=== PATIENT | female | born 1930 | race Hispanic/Latino ===

== ENCOUNTER 2016-05-06 16:45 | Emergency (ER) | payer MEDICARE, OTHER ==
[2016-05-06 16:45] VITALS: BMI 29.9
--- NOTE | 2016-05-06 18:38 | CT ---
EXAM: CT Head Without Intravenous Contrast. CLINICAL HISTORY: 86 years old, female; Injury or trauma; Fall; Initial encounter; Concussion / head injury; Additional info: S/P fall TECHNIQUE: Axial computed tomography images of the head/brain without intravenous contrast. This CT exam was performed using one or more of the following dose reduction techniques: automated exposure control, adjustment of the mA and/or kV according to patient size, and/or use of iterative reconstruction technique. EXAM DATE/TIME: 05/06/2016 5:04 PM COMPARISON: There are no prior studies for comparison. FINDINGS: Brain: There is dilatation of sulci gyri and ventricles. There is no midline shift. There is decreased attenuation in periventricular white matter. There are small age-indeterminate lacunar infarcts in the basal ganglia. There are no focal masses. There are no focal hemorrhages. Denny-white differentiation is visualized. Ventricles: See above Bones: Cranial vault is intact. Soft tissues: unremarkable Sinuses: There is no acute sinusitis. Ears and mastoids: Middle ears and mastoids are unremarkable. Orbits: Orbital contents are unremarkable. IMPRESSION: Atrophy and small vessel disease, no bleed
--- NOTE | 2016-05-06 18:40 | ED PDOC ---
HPI: Trauma/Fall - HPI Time Seen by Provider: 05/06/16 16:51 Chief Complaint (Nursing): Upper Extremity Problem/Injury Chief Complaint (Provider): Evaluation s/p Fall History Per: Patient History/Exam Limitations: no limitations Injury Occurred (Timing): Just Before Arrival Location Of Injury: Left: Wrist Severity: Moderate Additional Complaint(s): Samantha Pugh is an 86 year old female, with a past medical history inclusive of HTN, hyperlipidemia, type II diabetes (diet controlled) and Parkinson's Disease, who presents to the ED on 05/06/16 for the evaluation of moderate left wrist pain after having tripped and fallen within a store. Patient reports having landed on her left side and is also concerned about her left hip as she recently underwent a hip replacement on that side. She is unsure regarding possible head trauma but denies loss of consciousness or numbness/tingling within her left hand. Further denies chest pain, shortness of breath or acute dizziness/headache prior to falling. PMD: Vincent Perez Past Medical History Reviewed: Historical Data, Nursing Documentation, Vital Signs Vital Signs: Last Vital Signs Temp 98.0 F 05/06/16 16:47 Pulse 67 05/06/16 16:47 Resp 20 05/06/16 16:47 BP 142/61 05/06/16 16:47 Pulse Ox 99 05/06/16 16:47 - Medical History PMH: Anxiety, Arthritis, Diabetes (diet controlled), HTN, Hyperlipidemia, Pancreatitis, Parkinson's Disease, Chronic Kidney Disease Denies: HIV - Surgical History Surgical History: Cholecystectomy - Family History Family History: States: Unknown Family Hx - Home Medications Home Medications: Ambulatory Orders Medication Instructions Recorded Aspirin [Aspirin EC] 81 mg PO DAILY 02/10/15 Enalapril Maleate 5 mg PO DAILY 02/10/15 Escitalopram [Lexapro] 10 mg PO DAILY 02/10/15 Metoprolol Succinate [Toprol XL] 50 mg PO DAILY 02/10/15 Multivit, Iron, Min #5, FA 1 tab PO DAILY 02/10/15 [Strovite Forte Caplet] Atorvastatin [Lipitor] 20 mg PO DAILY #0 tab 02/23/15 Naphazoline/Pheniramine Opht 1 drop OU QID PRN #0 bottle 02/23/15 [Naphcon-A Opht] Docusate [Colace] 200 mg PO HS #0 cap 03/10/15 Ferrous Sulfate [Feosol] 325 mg PO TID #0 tab 03/10/15 Hydrocerin [Hydrocerin Cream] 1 applic TOP BID #0 jar 03/10/15 Lactobacillus Acidophilus [Bacid 1 cap PO BID #0 cap 03/10/15 Acidophilus] Polyethylene Glycol/Polyvinyl 1 drop OU QID #0 bottle 03/10/15 [Artificial Tears] Primidone [Mysoline] 75 mg PO HS #0 tab 03/10/15 Sulfamethoxazole/Trimethoprim 1 tab PO Q12 #0 tab 03/10/15 [Bactrim DS Tab] traMADol [Ultram] 50 mg PO Q6 PRN #0 tab 03/10/15 Ibuprofen [Motrin Tab] 600 mg PO Q6 #30 tab 05/06/16 - Allergies Allergies/Adverse Reactions: Allergies Allergy/AdvReac Type Severity Reaction Status Date / Time Penicillins Allergy RASH Verified 03/02/15 06:18 Review of Systems ROS Statement: Except As Marked, All Systems Reviewed And Found Negative Cardiovascular: Negative for: Chest Pain Respiratory: Negative for: Shortness of Breath Musculoskeletal: Positive for: Arm Pain (left wrist) Neurological: Negative for: Numbness (no tingling), Headache, Dizziness Physical Exam - Reviewed Nursing Documentation Reviewed: Yes Vital Signs Reviewed: Yes - Physical Exam Appears: Positive for: Non-toxic, No Acute Distress Head Exam: Positive for: ATRAUMATIC, NORMAL INSPECTION, NORMOCEPHALIC Skin: Positive for: Normal Color, Warm, Dry Eye Exam: Positive for: Normal appearance, PERRL Neck: Positive for: Normal, Painless ROM, Supple Cardiovascular/Chest: Positive for: Regular Rate, Rhythm, Chest Non Tender. Negative for: Murmur Respiratory: Positive for: Normal Breath Sounds. Negative for: Respiratory Distress Pulses-Radial (L): 2+ Gastrointestinal/Abdominal: Positive for: Normal Exam, Soft. Negative for: Tenderness Back: Positive for: Normal Inspection. Negative for: Vertebral Tenderness Extremity: Positive for: Tenderness (left wrist; b/l left shoulder, left elbow and b/l hips nontender), Capillary Refill (<2 seconds), Swelling (left wrist). Negative for: Normal ROM (decreased ROM of left wrist secondary to pain; FROM of left shoulder, left elbow and all fingers on left hand), Deformity Neurologic/Psych: Positive for: Alert, Oriented. Negative for: Motor/Sensory Deficits (neurovascularly intact left hand) - ECG O2 Sat by Pulse Oximetry: 99 (RA) Pulse Ox Interpretation: Normal Medical Decision Making Medical Decision Makin:51 Initial Impression: wrist fracture; will r/o intracranial bleed as well as hip/ pelvis injury Initial Plan: * CT Head w/o contrast * XR Left Forearm * XR Left Wrist * XR Left Hip * XR Left Knee * Tylenol 650mg PO * Reevaluation 17:25 XR Left wrist as reviewed by me shows nondisplaced wrist fracture. Placed in volar splint, see procedure note for additional details. XR Left Hip shows questionable fracture, will order CT Pelvis for further evaluation. 18:37 CT Head report reviewed: atrophy and small vessel disease, no bleed. See full report for additional details. 18:46 CT Pelvis report reviewed: osteopenia and degenerative change, no acute fracture identified. Left prosthesis and fecal impaction. See full report for additional details. 1930 Pt. ambulating around E.D. with cane. Knee xray negative for acute pathology. Told to f/u w/ Dr. Lal. Scribe Attestation: Documented by Catie Mendoza, acting as a scribe for Terrence Cary MD. Provider Scribe Attestation: All medical record entries made by the Scribe were at my direction and personally dictated by me. I have reviewed the chart and agree that the record accurately reflects my personal performance of the history, physical exam, medical decision making, and the department course for this patient. I have also personally directed, reviewed, and agree with the discharge instructions and disposition. Procedures - Time-Out Type of Procedure: Wrist Splint Site of Procedure: Left Wrist Correct Patient (with visual ID + MR# on ID Band): Yes Correct Procedure: Yes Correct Site Marked: Yes - Splinting Location: Left Wrist Hand-Made Type: orthoglass Splint: volar Pre-Proc Neuro Vasc Exam: normal Post-Proc Neuro Vasc Exam: normal Progress: Good placement, neurovascular status remains intact, patient tolerated procedure well with no immediate complications. Disposition - Clinical Impression Clinical Impression: Fracture of wrist - Disposition Referrals: Saeed Lal III, MD [Staff Provider] - Disposition: Routine/Home Disposition Time: 19:30 Condition: IMPROVED Prescriptions: Ibuprofen [Motrin Tab] 600 mg PO Q6 #30 tab Instructions: Wrist Fracture in Adults (ED)
--- NOTE | 2016-05-06 18:46 | CT ---
EXAM: CT Pelvis Without Intravenous Contrast. CLINICAL HISTORY: 86 years old, female; Injury or trauma; Fall; Initial encounter; Blunt trauma (contusions or hematomas); Bilateral; Pelvic region; Prior surgery; Additional info: S/P fall, R/O hip fracture TECHNIQUE: Axial computed tomography images of the pelvis without intravenous contrast. This CT exam was performed using one or more of the following dose reduction techniques: automated exposure control, adjustment of the mA and/or kV according to patient size, and/or use of iterative reconstruction technique. Coronal and sagittal reformatted images were created and reviewed. EXAM DATE/TIME: 05/06/2016 5:25 PM COMPARISON: CT - ABD PELVIS PO IV CONTRAST 02/15/2015 2:54:08 PM FINDINGS: Bowel: Small bowel is mildly distended with fluid and air. There are scattered air-fluid levels. Appendix and terminal ileum are unremarkable. There is a fecal bolus in the rectum. Appendix: See stomach and bowel Intraperitoneal space: There is no significant fluid.There is no free air. Bladder: unremarkable Reproductive: Uterus and adnexal structures are unremarkable. Bones/joints: Bony structures are diffusely osteopenic. There are degenerative changes in the lower lumbar spine. There is L4-5 and L5-S1 disc disease. There is mild disc bulging. Sacroiliac joints are patent. No sacral fractures are visualized. There are no pelvic fractures. There are degenerative changes at the right hip. There is no right hip fracture. There is a left hip prosthesis. Allowing for streak, there is no instrument failure. The left femoral shaft fracture is identified. Soft tissues: There is minimal bruising in the soft tissues of the right hip Vasculature: There are vascular calcifications. There are vascular calcifications. Lymph nodes: unremarkable IMPRESSION: Osteopenia and degenerative change, no acute fracture identified; left prosthesis; fecal impaction
[2016-05-06 20:12] VITALS: BP 122/78; PULSE 86; RESP 18; TEMP 98.3
[2016-05-06 20:25] VITALS: O2SAT 99
--- NOTE | 2016-05-07 06:37 | RAD ---
HISTORY: r/o fx COMPARISON: No prior FINDINGS: BONES: Osteopenia. 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 JOINTS: As above. SOFT TISSUE: Normal. OTHER FINDINGS: None . IMPRESSION: Osteopenia. 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
--- NOTE | 2016-05-07 06:41 | RAD ---
HISTORY: s/p fall COMPARISON: No prior FINDINGS: BONES: Osteopenia. Impaction fracture of the distal radius. JOINTS: Normal. No osteoarthritis. SOFT TISSUE: Normal. OTHER FINDINGS: None . IMPRESSION: Impaction fracture of the distal radius.
--- NOTE | 2016-05-07 06:46 | RAD ---
PROCEDURE: Right Wrist Radiographs. HISTORY: s/p fall COMPARISON: None. FINDINGS: BONES: Osteopenia with impaction fracture of the distal radius and ulnar styloid fracture. JOINTS: Radioscaphoid joint space narrowing. SOFT TISSUES: Normal. OTHER FINDINGS: None. IMPRESSION: Osteopenia with impaction fracture of the distal radius and ulnar styloid fracture.
--- NOTE | 2016-05-07 06:54 | RAD ---
HISTORY: s/p fall COMPARISON: No prior FINDINGS: BONES: Status post left total knee replacement. Severe degenerative changes of the right hip are noted. Nondisplaced femoral neck fracture is not excluded. JOINTS: Normal. No osteoarthritis. SOFT TISSUE: Normal. OTHER FINDINGS: None . IMPRESSION: Status post left total knee replacement. Severe degenerative changes of the right hip are noted. Nondisplaced femoral neck fracture is not excluded.
== END 2016-05-06 20:14 | disposition home or self-care (01) ==
LOC: H.ER 16:45
DX: S52.502A Unspecified fracture of the lower end of left radius, initial encounter for closed fracture (principal); S09.90XA Unspecified injury of head, initial encounter; W19.XXXA Unspecified fall, initial encounter; Y92.513 Shop (commercial) as the place of occurrence of the external cause; E11.22 Type 2 diabetes mellitus with diabetic chronic kidney disease; E78.5 Hyperlipidemia, unspecified; G20 Parkinson's disease; I12.9 Hypertensive chronic kidney disease with stage 1 through stage 4 chronic kidney disease, or unspecified chronic kidney disease; I73.9 Peripheral vascular disease, unspecified; Z79.82 Long term (current) use of aspirin; Z96.652 Presence of left artificial knee joint